=== PATIENT | female | born 1975 | race Caucasian/White ===

== ENCOUNTER 2017-03-05 11:44 | Emergency (ER) | payer MEDICAID ==
[~2017-03-05] VITALS: Ht 157.5 cm; Wt 66.0 kg
[~2017-03-05 11:44] MED LIST: DOCU-30 PO; HYDR-3307 PO; IBUP-1222 PO; PENT100C2 XX
[2017-03-05] MEDS ORDERED: SODIUM CHLORIDE FLUSH 10ML SYR IVF ONE (13:30)
[2017-03-05] MEDS ORDERED: LORazepam 2 MG/ML, 1ML IVPush ONE (13:30)
[2017-03-05] MEDS ORDERED: ONDANSETRON 2MG/ML, 2ML IVPush ONE (13:30)
[2017-03-05] MEDS ORDERED: SODIUM CHLORIDE 0.9% 1,000ML IVBOLUS ONE (13:30)
[2017-03-05 13:48] LABS: BLOOD UREA NITROGEN 13 mg/dL (7-18)
[2017-03-05] MEDS ORDERED: LORazepam 2 MG/ML, 1ML ONE (13:54)
[2017-03-05] MEDS ORDERED: MECLIZINE CHEWABLE 25 MG TAB PO ONE (15:30)
[2017-03-05] MEDS ORDERED: MECLIZINE CHEWABLE 25 MG TAB ONE (15:33)
[2017-03-05 15:35] VITALS: BP 138/99
== END 2017-03-05 16:25 | disposition home or self-care (01) ==
LOC: ED 16:10
DX: R42 Dizziness and giddiness (principal); G43.909 Migraine, unspecified, not intractable, without status migrainosus; Z87.440 Personal history of urinary (tract) infections
CPT/HCPCS: 36415; 70450; 80048; 81003; 82040; 85025; 93005; 96361; 96374; 99285; J2060; J7030

== ENCOUNTER 2017-10-24 10:03 | Emergency (ER) | payer MEDICAID ==
[~2017-10-24] VITALS: Ht 157.5 cm; Wt 65.0 kg
[~2017-10-24 10:03] MED LIST changes: +DOCU-131 PO; -DOCU-30 PO
[2017-10-24] MEDS ORDERED: DIAZEPAM 5 MG/ML, 2ML IVPush ONE ×2 (11:00→12:00)
[2017-10-24] MEDS ORDERED: KETOROLAC 30 MG/1 ML ONE (11:57)
[2017-10-24] MEDS ORDERED: KETOROLAC 30 MG/1 ML IVPush ONE (12:00)
[2017-10-24 12:42] VITALS: BP 149/103
== END 2017-10-24 12:46 | disposition home or self-care (01) ==
LOC: ED 12:30
DX: S16.1XXA Strain of muscle, fascia and tendon at neck level, initial encounter (principal); S46.912A Strain of unspecified muscle, fascia and tendon at shoulder and upper arm level, left arm, initial encounter; G43.909 Migraine, unspecified, not intractable, without status migrainosus; Y99.8 Other external cause status; V59.49XA Driver of pick-up truck or van injured in collision with other motor vehicles in traffic accident, initial encounter; Y93.89 Activity, other specified; Y92.488 Other paved roadways as the place of occurrence of the external cause
CPT/HCPCS: 72050; 73000; 96374; 96375; 96376; 99284; J1885; J3360